=== PATIENT | female | born 1965 | race Caucasian/White ===

== ENCOUNTER 2019-02-17 16:40 | Emergency (ER) | payer OTHER, BC ==
[2019-02-17] MEDS ORDERED: Sodium Chloride 0.9% 1,000 ML ONE (17:00)
[2019-02-17 17:13] LABS: #Basophils 0.1 thou/uL (0.0-0.2); #Eosinphils 0.2 thou/uL (0.0-0.7); #Lymphocytes 2.9 thou/uL (1.20-3.40); #Monocytes 0.6 thou/uL (0.11-0.59); #Neutrophils 3.9 thou/uL (1.40-6.50); %Basophils 1.2 % (0.0-1.0); %Eosinophils 2.8 % (0.0-10.0); %Lymphocytes 37.7 % (21.0-51.0); %Monocytes 8.2 % (0.0-10.0); %Neutrophils 50.1 % (42.0-75.0); Hemoglobin 14.4 g/dL (12.0-16.0); Mean Corpuscular HGB CONC 32.2 g/dL (32.0-36.0); Mean Corpuscular Hemoglobin 31.4 pg (27.0-31.0); Mean Corpuscular Volume 97.4 fL (78.0-98.0); Platelet Count 202 thou/uL (130-400); RBC Distribution Width 12.2 % (11.5-14.5); White Blood Cell (WBC) Count 7.7 thou/uL (4.8-10.8)
[2019-02-17 17:40] LABS: PTT 30.5 SEC (22.9-36.1); Prothrombin Time 13.4 SEC (12.0-14.7)
--- NOTE | 2019-02-17 17:48 | CT ---
Exam: CT brain PROVIDED CLINICAL HISTORY: Pain COMPARISON: None FINDINGS: The ventricular system is normal in size and morphology. No evidence for intracranial hemorrhage or mass effect. The extracranial soft tissues and osseous structures demonstrate no evidence for an acute abnormality. IMPRESSION: No evidence for intracranial hemorrhage or mass effect.
[2019-02-17 17:50] LABS: ALT (SGPT) 36 U/L (8-55); AST (SGOT) 31 U/L (5-34); Alcohol Less than 10 mg/dL (Less than 10); Alkaline Phosphatase 50 U/L (40-110); Anion Gap 16 mmol/L (10-20); BUN (Urea Nitrogen) 14 mg/dL (9.8-20.1); Bilirubin, Total 0.3 mg/dL (0.2-1.2); Calc. Creatinine Clearance 0 mL/min (70-130); Calcium 9.4 mg/dL (7.8-10.44); Carbon Dioxide 22 mmol/L (22-29); Chloride 108 mmol/L (98-107); Estimated GFR-MDRD Greater than 90; Globulin 2.8 g/dL (2.4-3.5); Glucose 124 mg/dL (70-105); Lipase 9 U/L (8-78); Potassium 3.4 mmol/L (3.5-5.1); Protein, Total 6.8 g/dL (6.0-8.3); Sodium 143 mmol/L (136-145)
--- NOTE | 2019-02-17 17:51 | CT ---
EXAM: CT cervical spine PROVIDED CLINICAL HISTORY: Pain COMPARISON: None FINDINGS: No evidence for fracture or traumatic subluxation. No prevertebral soft tissue swelling apparent. Vi sualized lung apices appear clear. Cervical degenerative changes are seen. IMPRESSION: No evidence for fracture or traumatic subluxation.
[2019-02-17] MEDS ORDERED: Morphine 4 MG/ML VIAL ONE (17:55)
[2019-02-17] MEDS ORDERED: Ondansetron PF 4 MG/2 ML Vial ONE (17:56)
--- NOTE | 2019-02-17 18:50 | CT ---
EXAM: CT neck, chest, abdomen and pelvis with IV contrast PROVIDED CLINICAL HISTORY: Trauma FINDINGS: Evaluation is limited as the reconstructions are not performed from the source data. Entirety of the acquired data submitted for interpretation 6:45 PM. The great vessels of the neck appear normally opacified. The heart, pericardium and great vessels demonstrate no evidence for traumatic abnormality. Lungs are free of significant opacity. No pleural fluid or pneumothorax apparent. The solid abdominal organs demonstrate no evidence for traumatic abnormality. 1 cm angiomyolipoma lef t kidney. No bowel dilatation, inflammatory fat stranding, free fluid or free air apparent. The major vascular structures appear demonstrate no acute abnormality. Vascular calcification is seen. The osseous structures demonstrate no acute abnormality. Thoracic and lumbar spine sagittal and coron al reconstructions demonstrate normal spinal alignment and maintenance of vertebral body heights. IMPRESSION: No evidence for traumatic abnormality.
[2019-02-17 19:08] LABS: Bilirubin Negative (Negative); Blood, Urine Negative (Negative); Clarity Clear (Clear); Glucose, Urine (Dipstick) 500 mg/dL (Negative); Leukocyte Negative (Negative); Nitrite Negative (Negative); Protein, Urine (Dipstick) Negative (Neg-Trace); Urobilinogen 0.2 mg/dL (Less than 2)
== END 2019-02-17 19:20 | disposition home or self-care (01) ==
LOC: NAV ERS 16:40
DX: S20.219A Contusion of unspecified front wall of thorax, initial encounter (principal); E11.9 Type 2 diabetes mellitus without complications; M19.90 Unspecified osteoarthritis, unspecified site; F41.9 Anxiety disorder, unspecified; Z79.4 Long term (current) use of insulin; Z79.899 Other long term (current) drug therapy; V43.62XA Car passenger injured in collision with other type car in traffic accident, initial encounter
CPT/HCPCS: 36415; 70450; 70491; 71260; 72125; 74177; 80053; 80307; 81003; 82150; 83605; 83690; 84484; 85025; 85610; 85730; 93005; 94760; 96361; 96374; 96375; J2270; J2405; J7050; L0120